=== PATIENT | female | born 1975 | race Caucasian/White ===

== ENCOUNTER 2019-08-15 14:53 | Emergency (ER) | payer MEDICARE, MEDICAID ==
[~2019-08-15] VITALS: Ht 160 cm; Wt 60.0 kg
[~2019-08-15 14:53] MED LIST: ACET-1015; ALBU8.5H8 IH; AMOX500C2 PO; AZEL23SP BOTHNARES; CALC-1197 PO; CARB15DR91 LEFT EAR; CHLO473M3 PO; CLON-527 PO; DIAZ5TAB4 PO; DIVA250T4 PO; DOCU100C40 PO; FLUT16SP26 BOTHNARES; GUAI120S42; IBUP-1984 PO; LACRI-LUBE; LOPE-144; LORA10TA7 PO; LURA40TA3 PO; MAGN400O6 PO; MEDIHONEY TOP; MICONAZOLE VG; MONT10TA26 PO; MULT1TAB74 PO; MYL80T; OMEP20CA15 PO; OXYB5TAB16 PO; PREDNISOLONE; SENN-263 PO; SIMV5TAB58 PO; TEMA30CA5 PO; TRIAMCINOLONE LOTION; ZONI100C31 PO; [UNRECOGNIZED DRUG - CODE] PO
[2019-08-15] MEDS ORDERED: L. R1CAP4 PO (16:21)
[2019-08-15] MEDS ORDERED: AMOX500C2 PO (16:21)
== END 2019-08-15 16:35 | disposition home or self-care (01) ==
LOC: ER 14:54
DX: S01.512A Laceration without foreign body of oral cavity, initial encounter (principal); R62.50 Unspecified lack of expected normal physiological development in childhood; Z91.011 Allergy to milk products; Z79.899 Other long term (current) drug therapy; X58.XXXA Exposure to other specified factors, initial encounter; Y93.89 Activity, other specified; Y92.89 Other specified places as the place of occurrence of the external cause; Y99.9 Unspecified external cause status
CPT/HCPCS: 99283

== ENCOUNTER 2020-11-27 19:06 | Emergency (ER) | payer MEDICARE, MEDICAID ==
[~2020-11-27] VITALS: Ht 154.9 cm; Wt 65.5 kg
[~2020-11-27 19:06] MED LIST changes: +ALBU8.5H17 IH; -ALBU8.5H8 IH; -CALC-1197 PO; +CALC-1215 PO; +L. R1CAP4 PO; -MONT10TA26 PO; +MONT10TA32 PO; +MULT-620 PO; -MULT1TAB74 PO; -MYL80T; +SIME80TA15
--- NOTE | 2020-11-27 19:18 | NUR ---
caregiver at bedside with the pt. Addendum: 11/27/20 at 1922 by RANDALL pt has cellulitis on her lower extremity and pt is on bactrium abx.
--- NOTE | 2020-11-27 19:18 | NUR ---
as per caregiver pt is recently diagnosed with uti and on abx for it ,pt has temp of 99.0 axillary .
[2020-11-27 22:48] VITALS: BP 145/101
== END 2020-11-27 22:50 | disposition home or self-care (01) ==
LOC: ER 19:07
DX: T17.928A Food in respiratory tract, part unspecified causing other injury, initial encounter (principal); R05 Cough; R06.2 Wheezing; Z98.890 Other specified postprocedural states; Z91.018 Allergy to other foods; Z79.899 Other long term (current) drug therapy; X58.XXXA Exposure to other specified factors, initial encounter; Y93.89 Activity, other specified; Y92.89 Other specified places as the place of occurrence of the external cause; Y99.8 Other external cause status
CPT/HCPCS: 71045; 99284

== ENCOUNTER 2021-06-26 17:31 | Emergency (ER) | payer MEDICARE, MEDICAID ==
[~2021-06-26] VITALS: Ht 154.9 cm; Wt 63.6 kg
[~2021-06-26 17:31] MED LIST changes: +LURA40TA2 PO; -LURA40TA3 PO; +MONT-40 PO; -MONT10TA32 PO
[2021-06-26] MEDS ORDERED: CEPH-585 PO (18:59)
[2021-06-26] MEDS ORDERED: SULF1TAB49 PO (18:59)
[2021-06-26 19:20] VITALS: BP 110/78
== END 2021-06-26 19:22 | disposition home or self-care (01) ==
LOC: ER 17:32
DX: L03.114 Cellulitis of left upper limb (principal); Z91.011 Allergy to milk products; Z79.2 Long term (current) use of antibiotics; Z79.899 Other long term (current) drug therapy; Z86.14 Personal history of Methicillin resistant Staphylococcus aureus infection
CPT/HCPCS: 99283

== ENCOUNTER 2021-07-29 11:37 | Emergency (ER) | payer MEDICARE, MEDICAID ==
[~2021-07-29] VITALS: Ht 154.9 cm; Wt 70.0 kg
[~2021-07-29 11:37] MED LIST changes: +CEPH-585 PO
[2021-07-29 13:09] LABS: BASOPHILS % (AUTO) 0.2 % (0-1); EOSINOPHILS # (AUTO) 0.1 X10'3 (0-0.9); HEMATOCRIT 33.3 % (35.0-45.0); LYMPHOCYTES # (AUTO) 1.7 X10'3 (1.1-4.8); LYMPHOCYTES % (AUTO) 24.7 % (21-51); MEAN CORPUSCULAR HEMOGLOBIN 29.7 PG (27.0-31.0); MEAN CORPUSCULAR HGB CONC 32.9 g/dL (33.0-36.5); MEAN CORPUSCULAR VOLUME 90.2 FL (78-98); MEAN PLATELET VOLUME 8.5 FL (7.4-10.4); MONOCYTES # (AUTO) 0.9 X10'3 (0-0.9); MONOCYTES % (AUTO) 12.7 % (2-12); NEUTROPHILS # (AUTO) 4.3 X10'3 (1.8-7.7); NEUTROPHILS % (AUTO) 61.4 % (42-75); PLATELET COUNT 176 X10'3 (140-440); RED BLOOD COUNT 3.69 X10'6 (4.20-5.60); RED CELL DISTRIBUTION WIDTH 13.5 % (11.5-14.5); WHITE BLOOD COUNT 7.1 X10'3 (4.5-11.0)
[2021-07-29 13:27] LABS: ALANINE AMINOTRANSFERASE 14 U/L (12-78); ALBUMIN 3.2 G/DL (3.4-5.0); ALBUMIN/GLOBULIN RATIO 0.9 (1.1-1.5); ALKALINE PHOSPHATASE 44 IU/L (46-116); ANION GAP 11 (8-16); ASPARTATE AMINO TRANSFERASE 18 U/L (10-37); BILIRUBIN,TOTAL 0.2 MG/DL (0.1-1.0); BLOOD UREA NITROGEN 15 MG/DL (7-18); BUN/CREATININE RATIO 21.1 (6.6-38.0); CHLORIDE 95 MMOL/L (99-107); CREATININE 0.71 MG/DL (0.40-0.90); GLUCOSE 88 MG/DL (70-104); POTASSIUM 3.3 MMOL/L (3.5-5.1); SODIUM 130 MMOL/L (135-145); TOTAL PROTEIN 6.8 G/DL (6.4-8.2); eGFR 89 ML/MIN
[2021-07-29 13:35] LABS: CLARITY,URINE CLEAR (Clear); GLUCOSE, URINE NEGATIVE (Neg); KETONES,URINE NEGATIVE (Neg); LEUKOCYTE ESTERASE ,URINE NEGATIVE (Neg); NITRITES, URINE NEGATIVE (Neg); OCCULT BLOOD,URINE NEGATIVE (Neg); PH,URINE 5.5 (4.8-8.0); PROTEIN,URINE NEGATIVE (Neg); UROBILINOGEN,URINE 0.2 E.U/dL (0.2-1.0)
[2021-07-29 13:47] LABS: COLOR,URINE STRAW (Yellow); UA COLLECTION TYPE STRAIGHT CATH
[2021-07-29 17:56] VITALS: BP 102/66
== END 2021-07-29 17:59 | disposition home or self-care (01) ==
LOC: ER 11:38
DX: R05.9 Cough, unspecified (principal); H91.90 Unspecified hearing loss, unspecified ear; H54.7 Unspecified visual loss; Z86.69 Personal history of other diseases of the nervous system and sense organs; Z98.890 Other specified postprocedural states; Z79.2 Long term (current) use of antibiotics; Z91.018 Allergy to other foods; Z79.899 Other long term (current) drug therapy
CPT/HCPCS: 36415; 71046; 80053; 81003; 83880; 85025; 87040; 99284

== ENCOUNTER 2021-09-01 09:03 | Day surgery (SDC) | payer MEDICARE, MEDICAID ==
[~2021-09-01] VITALS: Ht 162.6 cm; Wt 65.4 kg
[~2021-09-01 09:03] MED LIST changes: +LIDOcaine Viscous 15ml cup ONE; +MIDAZolam 1 MG/ML 5ML VIAL ONE; -ZONI100C31 PO; +ZONI100C87 PO; +diphenhydrAMINE 50 mg/ml inj ONE; +fentaNYL/PF 50MCG/1 ML 2ML syringe ONE
[2021-09-01 09:30] VITALS: BP 114/79
[2021-09-01] MEDS ORDERED: ASCO500C17 PO (09:56)
[2021-09-01 10:09] VITALS: BP 112/78
[2021-09-01 10:19] VITALS: BP 104/65
[2021-09-01 10:29] VITALS: BP 112/71
[2021-09-01 10:39] VITALS: BP 129/60
== END 2021-09-01 10:45 | disposition home or self-care (01) ==
LOC: GI LAB 09:03
PROVIDERS: ATTEND Internal Medicine Gastroenterology
DX: R12 Heartburn (principal); K30 Functional dyspepsia; K29.50 Unspecified chronic gastritis without bleeding; G40.909 Epilepsy, unspecified, not intractable, without status epilepticus; Z79.899 Other long term (current) drug therapy
CPT/HCPCS: 43239; G0500; J1200; J2250; J3010; J7030; Z7512; 88305; 88342; 99152; A4620

== ENCOUNTER 2022-10-30 13:26 | Emergency (ER) | payer MEDICARE, MEDICAID ==
[~2022-10-30] VITALS: Ht 157.5 cm; Wt 56.0 kg
[~2022-10-30 13:26] MED LIST changes: +ASCO500C17 PO; -CEPH-585 PO; -LIDOcaine Viscous 15ml cup ONE; -MIDAZolam 1 MG/ML 5ML VIAL ONE; -diphenhydrAMINE 50 mg/ml inj ONE; -fentaNYL/PF 50MCG/1 ML 2ML syringe ONE
[2022-10-30 14:24] VITALS: BP 112/68
[2022-10-30] MEDS ORDERED: ibuprofen tablet 400 MG TABLET PO ONE (16:45)
== END 2022-10-30 16:50 | disposition home or self-care (01) ==
LOC: ER 13:27
DX: S60.041A Contusion of right ring finger without damage to nail, initial encounter (principal); X58.XXXA Exposure to other specified factors, initial encounter; Y93.89 Activity, other specified; Y92.89 Other specified places as the place of occurrence of the external cause; Y99.8 Other external cause status; Z91.011 Allergy to milk products; Z79.899 Other long term (current) drug therapy; Z79.1 Long term (current) use of non-steroidal anti-inflammatories (NSAID); Z79.2 Long term (current) use of antibiotics
CPT/HCPCS: 29130; 73130; 99283

== ENCOUNTER 2023-01-26 10:24 | Emergency (ER) | payer MEDICARE, MEDICAID ==
[~2023-01-26] VITALS: Ht 170.2 cm; Wt 61.0 kg
[2023-01-26 10:28] VITALS: BP 111/78; PULSE 92; RESP 18; TEMP 97.8; O2SAT 100
== END 2023-01-26 13:20 | disposition home or self-care (01) ==
LOC: ER 10:24
DX: M25.562 Pain in left knee (principal); Z91.040 Latex allergy status; Z88.8 Allergy status to other drugs, medicaments and biological substances
CPT/HCPCS: 73560; 99283

== ENCOUNTER 2023-12-22 10:28 | Outpatient (CLI) | payer MEDICARE, MEDICAID ==
[~2023-12-22 10:28] MED LIST changes: +CHLO473M13 PO; -CHLO473M3 PO; -OXYB5TAB16 PO; +OXYB5TAB21 PO
== END 2023-12-22 23:59 | disposition home or self-care (01) ==
LOC: CARD DIAG 10:28
PROVIDERS: ATTEND Family Medicine
DX: I34.81 Nonrheumatic mitral (valve) annulus calcification (principal); Q24.9 Congenital malformation of heart, unspecified
CPT/HCPCS: 93306